=== PATIENT | male | born 1945 | race Caucasian/White ===

== ENCOUNTER 2019-11-10 11:02 | Observation (INO) ==
[2019-11-10 11:27] LABS: Basophils # (auto) 0.03 K/uL (0-0.2); Basophils % (auto) 0.4 %; Eosinophils # (auto) 0.16 K/uL (0-0.5); Eosinophils % (auto) 2.3 %; Hematocrit (blood only) 46.2 % (42-52); Hemoglobin 16.5 g/dL (14.0-18.0); Immature Granulocytes # (auto) 0.04 K/uL (0.00-0.02); Immature Granulocytes % (auto) 0.6 %; Lymphocytes % (auto) 14.3 %; Mean Corpuscular Hemoglobin 32.9 pg (25-34); Mean Corpuscular Hgb Conc 35.7 g/dL (32-36); Mean Corpuscular Volume 92.2 fL (80-100); Mean Platelet Volume 10.6 fL (7.4-10.4); Monocytes # (auto) 0.65 K/uL (0.11-0.59); Monocytes % (auto) 9.3 %; Neutrophils # (auto) 5.13 K/uL (1.4-6.5); Neutrophils % (auto) 73.1 %; Platelet Count 141 K/uL (130-400); RDW Coefficient of Variation 12.6 % (11.5-14.5); RDW Standard Deviation 42.5 fL (36.4-46.3); Red Blood Count 5.01 M/uL (4.7-6.1); White Blood Count 7.01 K/uL (4.8-10.8)
[2019-11-10] MEDS ORDERED: ASPIRIN CHEW 324 MG PO STA (11:28)
[2019-11-10] MEDS ORDERED: NITROGLYCERIN SL 0.4 MG/TAB TAB ONE (11:28)
[2019-11-10] MEDS: NITROGLYCERIN SL 0.4 MG/TAB TAB SL PRN ×2 (11:29→11:35)
[2019-11-10 11:37] LABS: Partial Thromboplastin Time 27.9 Seconds (21.0-31.0); Prothrombin Time 10.4 Seconds (9.0-12.0)
[2019-11-10 11:43] LABS: Alanine Aminotransferase 25 U/L (12-78); Albumin Level 3.8 gm/dl (3.4-5.0); Aspartate Aminotransferase 18 U/L (15-37); BUN Creatinine Ratio 11.2 (10-20); Blood Urea Nitrogen 11 mg/dl (7-18); Calcium 8.8 mg/dl (8.5-10.1); Carbon Dioxide 28 mmol/L (21-32); Chloride 107 mmol/L (98-107); Est GFR (African American) 86.8; Est GFR (Non-African American) 74.9; Glucose 102 mg/dl (70-99); Potassium 4.5 mmol/L (3.5-5.1); Sodium 139 mmol/L (136-145)
[2019-11-10 11:47] LABS: Alkaline Phosphatase 81 U/L (45-117); Bilirubin,Total 0.6 mg/dl (0.2-1); Globulin 3.8 gm/dl (2.5-4.0); Total Protein 7.6 gm/dl (6.4-8.2); Troponin I < 0.015 ng/ml (0-0.045)
--- NOTE | 2019-11-10 11:48 | XRay Report ---
XR chest 1V portable CLINICAL HISTORY: Chest Pain COMPARISON STUDY: Chest radiograph March 12, 2016. Chest CT August 24, 2014. FINDINGS: Lung volumes are normal. Lungs are clear. There is no pneumothorax or pleural effusion. Car diac size is normal. Mediastinal contours are normal. There is no evidence for pulmonary edema. IMPRESSION: No acute cardiopulmonary findings. No change in appearance of the chest. ACT 112: Negative or not required by law. Electronically signed by: Hank Lara M.D. 11/10/2019 11:46 AM
[2019-11-10] MEDS ORDERED: OPTIRAY 320 125ml IV PRN (12:22)
--- NOTE | 2019-11-10 12:42 | CT Scan Report ---
CT ANGIOGRAPHY OF THE CHEST, PULMONARY EMBOLUS PROTOCOL CLINICAL HISTORY: Chest pain. Evaluate for pulmonary embolus. COMPARISON STUDY: Chest CT August 24, 2014. Chest radiograph November 10, 2019. TECHNIQUE: Following IV administration of 120 mL of Optiray-320, helical axial images of the chest we re obtained utilizing the pulmonary embolus protocol. Maximal intensity projections and sagittal and coronal reformats were viewed on an independent 3D workstation. IV contrast was administered withou t complication. Automated exposure control was utilized for the study. A dose lowering technique wa s utilized adhering to the principles of ALARA. CT DOSE: 416.86 mGy.cm FINDINGS: No pulmonary emboli are identified. The heart is mildly enlarged. There is no pericardial effusion. Mildly enlarged bilateral hilar lymph nodes are similar to CT of August 24, 2014 although better assessed on this contrast enhanced exam. There is no pneumothorax or pleural effusion. There is no consolidation to suggest pneumonia. There is mild bronchial wall thickening. A 9 mm perifissura l lingular nodule on image 135 of [address] of August 24, 2014. This is benign give n stability. Bony thorax is unremarkable. Several hepatic cysts are noted. IMPRESSION: 1. No pulmonary emboli identified. 2. No acute findings within the chest. 3. No change in mildly enlarged bilateral hilar lymph nodes since CT of August 24, 2014. These are likely benign given stability. 4. No change in a 9 mm lingular nodule which is benign given stability. 5. Mild cardiomegaly. ACT 112: Negative or not required by law. Electronically signed by: Hank Lara M.D. 11/10/2019 12:40 PM
[2019-11-10] MEDS ORDERED: fentaNYL citrate 100 MCG/2 ML VIAL IV STA (12:45)
[2019-11-10] MEDS ORDERED: ONDANSETRON INJ 2 MG/ML 2 ML VIAL IV STA (12:45)
--- NOTE | 2019-11-10 14:05 | History & Physical Report ---
Date of Service November 10, 2019 Assessment & Plan (1) Acute chest pain: Pt is 74 y/o M with PMH GERD, IBS, prior smoker presented to ER with C/O CP started yesterday while sitting. Described as initially sharp mid sternal CP which then transitioned to heaviness across anterior chest and upper back. Also c/o sensation that he can't take a deep breath as that aggravates pain. This morning had some tingling sensation down left arm and hand. Denies associated nausea, vomiting, diaphoresis. H/O negative stress test in 2017. In ER afebrile, P: 93, R: 20, BP: 163/95, 96% on RA. No leukocytosis. Negative initial troponin CTA chest: No pulmonary emboli identified. No acute findings within the chest. CHEST PAIN R/O ACS. Risk factors: prior tobacco use. DDX: musculoskeletal etiology -In ER given ASA 324mg po, nitro SL x 2 without any relief of CP, fentanyl 50mcg, zofran -Monitor Vitals -Repeat EKG in am -Will trend troponin -Echo -lipid panel in am -continue aspirin 81mg daily -stress echo in am -ibuprofen for pain at this time as likely musculoskeletal -Cardiology consult (2) GERD (gastroesophageal reflux disease): -Continue PPI, continue H2 elaine prn (3) Anxiety: -Continue clonazepam prn DVT Prophylaxis -Heparin SQ Full Code as per discussion with pt Follows with Dr Sanchez for routine care Pt was seen and care coordinated with Dr Ram. See addendum History of Present Illness Chief Complaint: CP Primary Care Provider: Sandip Sanchez, Pt is 74 y/o M with PMH GERD, IBS, prior smoker presented to ER with C/O CP started yesterday. Reports was sitting when developed mid sternal CP that was initially sharp. Later in evening started with CP across anterior chest described as heaviness and across his upper back. Also c/o sensation that he can't take a deep breath as that aggravates pain. This morning had some tingling sensation down left arm and hand. States pain in chest and upper back aggravated with raising his arms. Denies associated nausea, vomiting, diaphoresis. No prior treatment attempted. Reports 1 month ago had URI symptoms which have since resolved except for lingering nonproductive cough. Denies fever/chills. Reports 2 days ago did a jumping enoc challenge with his granddaughter and states did 70 jumping jacks. No CP or SOB during this activity. 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 Denies fever/chills, N/V/C, FERNANDEZ, dizziness, syncope, vision changes, neck pain, hemoptysis, orthopnea, PND, palpitations, cough, sore throat, choking, otalgia, rhinorrhea, abdominal pain, other paresthesias, weakness, extremity weakness, extremity edema, rashes, urinary symptoms. FH unknown as pt was adopted. History cardiac [place] at [facility] [place]: normal coronary arteries reported History stress test 2017: no inducible ischemia, hypertensive response to exercise In ER pt was given 2 SL nitro without any relief of CP. Pt reports has chest heaviness and upper back heaviness with abduction of his arms and with movement of sitting up at this time. No further left arm discomfort or tingling. Allergies Allergy/AdvReac Type Severity Reaction Status Date / Time No Known Allergies Allergy Verified 11/10/19 11:22 Home Medications Home Medications Medication Instructions Recorded Confirmed Type aspirin 81 mg PO QAM 07/29/19 11/10/19 History clonazepam [Klonopin] 2 mg PO HS PRN 07/29/19 11/10/19 History multivitamin 1 tab PO QAM 07/29/19 11/10/19 History omeprazole 20 mg PO DAILY PRN 11/10/19 11/10/19 History ranitidine HCl 300 mg PO HS PRN 11/10/19 11/10/19 History Past Med/Surg History Medical History (Updated 11/10/19 @ 14:20 by Marely Ponce PA-C) Abnormal EKG FOLLOWED BY DR. ROMO "DR. ROMO SAID THERE MUST BE SOMETHING WRONG WITH THE MACHINE". Anxiety GERD (gastroesophageal reflux disease) History of heart block IBS (irritable bowel syndrome) Osteoarthritis Surgical History History of cholecystectomy History of colonoscopy History of esophagogastroduodenoscopy (EGD) History of herniorrhaphy 3 HERNIA REPAIRS History of tooth extraction History of total knee replacement RT/LEFT Family History (Updated 11/10/19 @ 14:20 by Marely Ponce PA-C) Other Family history unknown Social History (Updated 11/10/19 @ 14:21 by Marely Ponce PA-C) Preferred Language: Urdu Communication Ability: Effective Sample Grinder Required: No Beliefs That Will Affect Care: None marital status: Current Living Situation: Spouse Other Information That Helps Us Care for You: No Feels Safe at Home: Yes Safety Concerns: Feels Safe At This Time Smoking Status: Former smoker Tobacco Type: cigarettes ; Do You Dip or Chew Tobacco: No ; Smoking End Date: 1997 ; Second Hand Exposure: No ; Tobacco Cessation Education Requested by Patient: No Hx Alcohol Use: Yes Alcohol type: beer Alcohol Intake Frequency Comment: 3 day Hx Substance Use: No Review of Systems Review of Systems: All systems reviewed & are unremarkable except as noted in HPI & below Physical Exam Physical Exam: General: no distress, WDWN Head: normocephalic, atraumatic Eyes: PERRL, conjunctiva non-injected, anicteric ENT: normal inspection external ears, nose, mucous membranes moist Neck: supple, trachea midline, ROM intact Lungs: clear, no respiratory distress, no wheezing/rhonchi/rales CV: RRR, no murmur, no pretibial edema; +chest wall tenderness with abduction of arms Abd: normal BS, soft, non-tender Ext: no cyanosis, no calf tenderness Neuro: A&O x 3, no focal deficits noted, normal affect Skin: warm, dry Results & Data Vital Signs (Past 12 Hours) Vital Signs Temp Pulse Pulse Resp BP BP Pulse Ox 11/10/19 13:45 70 20 147/100 H 97 11/10/19 12:31 77 22 139/87 98 11/10/19 11:45 85 20 118/76 95 11/10/19 11:31 82 18 135/81 94 11/10/19 11:21 81 20 162/112 H 98 11/10/19 11:15 96 11/10/19 11:05 36.7 C 93 H 20 163/95 H 96 Laboratory Results Short CBC 11/10/19 Range/Units 11:17 WBC 7.01 (4.8-10.8) K/uL Hgb 16.5 (14.0-18.0) g/dL Hct 46.2 (42-52) % Plt Count 141 (130-400) K/uL BMP 11/10/19 11:17 Sodium 139 Potassium 4.5 Chloride 107 Carbon Dioxide 28 BUN 11 Creatinine 1.00 Glucose 102 H Calcium 8.8 Cardiac Enzymes 11/10/19 Range/Units 11:17 Troponin I < 0.015 (0-0.045) ng/ml Liver Function 11/10/19 Range/Units 11:17 Total Bilirubin 0.6 (0.2-1) mg/dl AST 18 (15-37) U/L ALT 25 (12-78) U/L Alkaline Phosphatase 81 (45-117) U/L Albumin 3.8 (3.4-5.0) gm/dl Diagnostic Findings CXR: IMPRESSION: No acute cardiopulmonary findings. No change in appearance of the chest. CTA CHEST: IMPRESSION: 1. No pulmonary emboli identified. 2. No acute findings within the chest. 3. No change in mildly enlarged bilateral hilar lymph nodes since CT of August 24, 2014. These are likely benign given stability. 4. No change in a 9 mm lingular nodule which is benign given stability. 5. Mild cardiomegaly. ECG Additional Comments: EKG 13:01, rate 69, sinus, t wave flattening AVL Code Status & VTE Plan VTE Prophylaxis Plan VTE Prophylaxis will be ordered: Yes Supervising Physician Co-Signing Physician Notes I performed a history and physical examination of the patient on 11/10/2019. I have discussed the patient's management with the advanced practitioner. Please refer to the PA-C's note for the documented findings and plan of care. This is a 74-year-old male who lives at home with his and is being admitted for the evaluation of chest pain. He does not have any history of coronary artery disease and his risk factors only include smoking which he quit several years ago. He does not have hypertension or diabetes or hyperlipidemia. He is adopted and is not aware of his family history. 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 He climbs ladders and denies any chest pain when he does any physical exertion or lifts any heavy weight. He is followed by Dr. Romo of cardiology department at [facility]. He had a cardiac catheterization in 2000 which did not show any obstructive disease. He had stress echocardiography in 2017 without any evidence of ischemia. Since yesterday he developed some chest pain, which initially was sharp and was located in the center of the chest. As time has passed is more across his shoulders and in his back but it does radiate to his left arm. This radiation to the left arm made him concerned and he decided to seek medical care. For some time his left hands felt numb and tingly which has improved now. He is also short of breath with this pain and is unable to take a deep breath as the pain limits that. He does take aspirin a day and took his aspirin this morning. He was given a full dose aspirin in the ER. He was also given 2 doses of sublingual nitroglycerin which did not make any difference to his chest pain. He denies any infectious symptoms currently. He did have some cold symptoms but they have improved now. 2 days ago he did 73 jumping jacks with his granddaughter. He denied any pain anywhere right away after doing that. His physical exam was unremarkable. His pain did increase when he raised his arms up as well as when he was asked to sit up. His EKG, personally reviewed showed T wave flattening in aVL and V2 which appears nonspecific. His first troponin is negative. PE was ruled out with a CT scan. Assessment and plan: His pain is probably musculoskeletal and may have been precipitated after doing 73 jumping jacks with his granddaughter. However it is radiating to his left arm and his left arm felt numb and he is short of breath. Given that, his age and smoking history, will obtain a stress test to be sure. Can trend troponin and repeat EKG if chest pain recurs.
[2019-11-10] MEDS ORDERED: ONDANSETRON INJ 2 MG/ML 2 ML VIAL IV PRN (14:43)
[2019-11-10] MEDS ORDERED: IBUPROFEN 600 MG TAB PO PRN (14:43)
[2019-11-10] MEDS ORDERED: clonazePAM 1 MG TAB PO PRN (14:43)
[2019-11-10] MEDS ORDERED: FAMOTIDINE 20 MG TAB PO PRN (14:43)
[2019-11-10] MEDS ORDERED: ACETAMINOPHEN 325 MG TAB PO PRN (14:43)
[2019-11-10] MEDS ORDERED: ALUMINUM/MAGNESIUM SUSP 30 ML UDC PO PRN (14:43)
--- NOTE | 2019-11-10 15:05 | Electrocardiogram Report ---
Test Reason : Blood Pressure : / mmHG Vent. Rate : 082 BPM Atrial Rate : 082 BPM P-R Int : 202 ms QRS Dur : 088 ms QT Int : 346 ms P-R-T Axes : 060 051 051 degrees QTc Int : 404 ms Normal sinus rhythm Normal ECG When compared with ECG of 12-MAR-2016 13:01, No significant change was found Confirmed by Amado العلي ([id number]) on 11/10/2019 3:05:26 PM Referred By: ER Confirmed By:Amado العلي
--- NOTE | 2019-11-10 15:12 | Electrocardiogram Report ---
Test Reason : Blood Pressure : / mmHG Vent. Rate : 069 BPM Atrial Rate : 069 BPM P-R Int : 224 ms QRS Dur : 086 ms QT Int : 368 ms P-R-T Axes : 065 061 058 degrees QTc Int : 394 ms Sinus rhythm with 1st degree A-V block Otherwise normal ECG When compared with ECG of 10-NOV-2019 11:10, (unconfirmed) No significant change was found Confirmed by Amado العلي ([id number]) on 11/10/2019 3:11:48 PM Referred By: REFERRED SELF Confirmed By:Amado العلي
[2019-11-10] MEDS: HEPARIN SOD 5,000 UNIT/0.5 ML VIAL SQ SCH ×2 (16:37→21:04)
--- NOTE | 2019-11-10 17:14 | Emergency Department Note ---
Entered by Diane Perez acting as a scribe for Marbin Cobos MD History of Present Illness General Chief complaint: Shortness of Breath/Dyspnea Stated complaint: SOB Time Seen by Provider: 11/10/19 11:22 Source: patient History of Present Illness Onset (ago): day(s) (yesterday morning) Location: chest Radiation: back and extremity (left arm) Pain Consistency: + constant Maximum Pain Intensity: 10 Quality: + other (tightness) Exacerbated By: + other (breathing) Associated symptoms: + denies other symptoms (cold symptoms, leg swelling, leg pain), + shortness of breath and + other (tingling in hand); no fever/chills (f ever) The patient is a 74 year old male who presents to the Emergency Room with complaints of constant chest pain starting yesterday morning. The patient states that yesterday morning he started having a tightness in the center of his chest. He states that it radiated to his back above his shoulder blades and then went over to his left arm. He states that it has not gone away, but he started to become concerned when he was sitting in his recliner this morning with his arm draped over the side and his fingers and hand went tingly. He notes that the pain has also become worse with breathing and that is making him short of breath. He reports that he feels like he cannot felt a full breath in. The patient notes that he does have a history of two heart blockages from 24 years ago. The patient denies fever, cold symptoms, leg swelling, leg pain, taking anything for the pain, recent use of Viagra, a history of smoking, a history of hypertension, and a history of DVT. Home Medications Home Medications Medication Instructions Recorded Confirmed Type aspirin 81 mg PO QAM 07/29/19 11/10/19 History clonazepam [Klonopin] 2 mg PO HS PRN 07/29/19 11/10/19 History multivitamin 1 tab PO QAM 07/29/19 11/10/19 History omeprazole 20 mg PO DAILY PRN 11/10/19 11/10/19 History ranitidine HCl 300 mg PO HS PRN 11/10/19 11/10/19 History Allergies Allergy/AdvReac Type Severity Reaction Status Date / Time No Known Allergies Allergy Verified 11/10/19 11:22 Past Med/Surg History Medical History Abnormal EKG FOLLOWED BY DR. JOEL "DR. JOEL SAID THERE MUST BE SOMETHING WRONG WITH THE MACHINE". 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 and A total of 10 systems reviewed and were otherwise negative Physical Exam Vital Signs Vital Signs - 24 hr 11/10/19 11:05 11/10/19 11:15 11/10/19 11:21 Temperature 36.7 C Temperature Source Oral Pulse Rate 93 H Pulse Rate [Right Finger] 81 Respiratory Rate 20 20 Respiratory Effort / Characteristics Non-Labored Spontaneous Spontaneous Labored Respiratory Depth Normal Blood Pressure 163/95 H Blood Pressure [Left Arm] 162/112 H Blood Pressure Mean 117 Blood Pressure Mean [Left Arm] 128 Blood Pressure Position Sitting Blood Pressure Position [Left Arm] Sitting Pulse Oximetry 96 96 98 Oxygen Delivery Method Room Air Room Air Sepsis Recent Fever Within 48 Hours No Sepsis Action Taken by Nursing No Action Required 11/10/19 11:31 11/10/19 11:45 11/10/19 12:31 Temperature Temperature Source Pulse Rate Pulse Rate [Right Finger] 82 85 77 Respiratory Rate 18 20 22 Respiratory Effort / Characteristics Respiratory Depth Blood Pressure Blood Pressure [Left Arm] 135/81 118/76 139/87 Blood Pressure Mean Blood Pressure Mean [Left Arm] 99 90 104 Blood Pressure Position Blood Pressure Position [Left Arm] Pulse Oximetry 94 95 98 Oxygen Delivery Method Sepsis Recent Fever Within 48 Hours Sepsis Action Taken by Nursing Constitutional: Vital signs reviewed. Eyes: Pupils are equal round reactive to light. Conjunctiva are noninjected. ENT: Pharynx is clear without erythema or exudate. Mucous membranes are moist. Neck supple without meningeal signs. Respiratory: Clear to auscultation bilaterally. Breath sounds are equal bilaterally. Cardiovascular: Regular rate and rhythm. No rubs or gallops. GI: Soft, nondistended and nontender. Bowel sounds are present. Musculoskeletal: No peripheral edema. No lower extremity tenderness. Integumentary: No cyanosis. Neurological: The patient is awake and alert. No focal deficits. Psychiatric: Normal affect. Course Course 1124: The patient was evaluated in room A3. A complete history and physical exam was performed. 1157: I reevaluated the patient and he said that his chest pain went down after the first Nitroglycerin, but came right back up. 1304: I reevaluated the patient and he is just now getting Fentanyl. He is still having chest discomfort. I discussed the patient's test results and treatment plan with him. He verbally agrees and understands. 1315: I discussed the patient's case with Dr. Isauro Li Hospitalist. He will evaluate the patient for further management. Administered Medications Heparin Sodium (Porcine) (Heparin Sodium (Porcine)) 5,000 units SQ Q8 [facility] Stop: 12/10/19 14:42 Last Admin: 11/10/19 16:37 Dose: 5,000 units Documented by: [id number] Cosigned by: [id number] Discontinued Medications Aspirin (Aspirin) 324 mg PO NOW STA Stop: 11/10/19 11:29 Last Admin: 11/10/19 11:40 Dose: 324 mg Documented by: [id number] Fentanyl Citrate (Fentanyl Citrate) 50 mcg IV NOW STA Stop: 11/10/19 12:46 Last Admin: 11/10/19 13:06 Dose: 50 mcg Documented by: [id number] Ioversol (Optiray 320 125ml) 120 ml IV ONCE PRN PRN Reason: Interaction Checking Stop: 11/14/19 12:21 Last Admin: 11/10/19 12:22 Dose: 120 ml Documented by: [id number] Nitroglycerin (Nitrostat) Confirm Administered Dose 0.4 mg .ROUTE .STK-MED ONE Stop: 11/10/19 11:29 Last Admin: 11/10/19 11:30 Dose: Not Given Documented by: [id number] Nitroglycerin (Nitrostat) 0.4 mg SL UD PRN PRN Reason: Chest Pain Stop: 12/10/19 11:27 Last Admin: 11/10/19 11:35 Dose: 0.4 mg Documented by: [id number] Admin: 11/10/19 11:29 Dose: 0.4 mg Documented by: [id number] Ondansetron HCl (Zofran) 4 mg IV NOW STA Stop: 11/10/19 12:46 Last Admin: 11/10/19 13:06 Dose: 4 mg Documented by: [id number] Medical Decision Making Differential Diagnosis Differential diagnoses include unstable angina, [place], PE, aortic dissection, pleursiy, GERD. Medical Records Attestation: I reviewed the patient's medical records. I did perform a limited focused review of portions of the patient's old chart on the electronic medical record. The patient has had no recent pertinent visits to this hospital. Home Medications Current Medication List: was personally reviewed by me Laboratory Data Attestation: I reviewed the patient's lab results. Result diagrams: 11/10/19 11:17 11/10/19 11:17 Lab Results 11/10/19 11/10/19 11/10/19 Range/Units 11:17 11:17 11:17 WBC 7.01 (4.8-10.8) K/uL RBC 5.01 (4.7-6.1) M/uL Hgb 16.5 (14.0-18.0) g/dL Hct 46.2 (42-52) % MCV 92.2 (80-100) fL MCH 32.9 (25-34) pg MCHC 35.7 (32-36) g/dL RDW Std Deviation 42.5 (36.4-46.3) fL RDW Coeff of Eufemia 12.6 (11.5-14.5) % Plt Count 141 (130-400) K/uL MPV 10.6 H (7.4-10.4) fL Immature Gran % (Auto) 0.6 % Neut % (Auto) 73.1 % Lymph % (Auto) 14.3 % Fleming % (Auto) 9.3 % Eos % (Auto) 2.3 % Baso % (Auto) 0.4 % Immature Gran # (Auto) 0.04 H (0.00-0.02) K/uL Neut # (Auto) 5.13 (1.4-6.5) K/uL Lymph # (Auto) 1.00 L (1.2-3.4) K/uL Fleming # (Auto) 0.65 H (0.11-0.59) K/uL Eos # (Auto) 0.16 (0-0.5) K/uL Baso # (Auto) 0.03 (0-0.2) K/uL PT 10.4 (9.0-12.0) Seconds INR 1.0 (0.9-1.1) APTT 27.9 (21.0-31.0) Seconds PTT Ratio 1.0 Sodium 139 (136-145) mmol/L Potassium 4.5 (3.5-5.1) mmol/L Chloride 107 (98-107) mmol/L Carbon Dioxide 28 (21-32) mmol/L Anion Gap 4.0 (3-11) BUN 11 (7-18) mg/dl Creatinine 1.00 (0.6-1.4) mg/dl Est Cr Clr Drug Dosing 71.0 ml/min Est GFR ( Amer) 86.8 Est GFR (Non-Af Amer) 74.9 BUN/Creatinine Ratio 11.2 (10-20) Glucose 102 H (70-99) mg/dl Calcium 8.8 (8.5-10.1) mg/dl Total Bilirubin 0.6 (0.2-1) mg/dl AST 18 (15-37) U/L ALT 25 (12-78) U/L Alkaline Phosphatase 81 (45-117) U/L Troponin I < 0.015 (0-0.045) ng/ml Total Protein 7.6 (6.4-8.2) gm/dl Albumin 3.8 (3.4-5.0) gm/dl Globulin 3.8 (2.5-4.0) gm/dl Albumin/Globulin Ratio 1.0 (0.9-2) Imaging Data Radiologist's Impression: Radiology results as stated below per my review and the radiologist's interpretation: XR chest 1V portable CLINICAL HISTORY: Chest Pain COMPARISON STUDY: Chest radiograph March 12, 2016. Chest CT August 24, 2014. FINDINGS: Lung volumes are normal. Lungs are clear. There is no pneumothorax or pleural effusion. Cardiac size is normal. Mediastinal contours are normal. There is no evidence for pulmonary edema. IMPRESSION: No acute cardiopulmonary findings. No change in appearance of the chest. ACT 112: Negative or not required by law. Electronically signed by: Hank Lara M.D. 11/10/2019 11:[address] ANGIOGRAPHY OF THE CHEST, PULMONARY EMBOLUS PROTOCOL CLINICAL HISTORY: Chest pain. Evaluate for pulmonary embolus. COMPARISON STUDY: Chest CT August 24, 2014. Chest radiograph November 10, 2019. TECHNIQUE: Following IV administration of 120 mL of Optiray-320, helical axial images of the chest were obtained utilizing the pulmonary embolus protocol. Maximal intensity projections and sagittal and coronal reformats were viewed on an independent 3D workstation. IV contrast was administered without complication. Automated exposure control was utilized for the study. A dose l owering technique was utilized adhering to the principles of ALARA. CT DOSE: 416.86 mGy.cm FINDINGS: No pulmonary emboli are identified. The heart is mildly enlarged. There is no pericardial effusion. Mildly enlarged bilateral hilar lymph nodes are similar to CT of August 24, 2014 although better assessed on this contrast enhanced exam. There is no pneumothorax or pleural effusion. There is no consolidation to suggest pneumonia. There is mild bronchial wall thickening. A 9 mm perifissural lingular nodule on image 135 of [address] of August 24, 2014. This is benign given stability. Bony thorax is unremarkable. Several hepatic cysts are noted. IMPRESSION: 1. No pulmonary emboli identified. 2. No acute findings within the chest. 3. No change in mildly enlarged bilateral hilar lymph nodes since CT of August 24, 2014. These are likely benign given stability. 4. No change in a 9 mm lingular nodule which is benign given stability. 5. Mild cardiomegaly. ACT 112: Negative or not required by law. Electronically signed by: Hank Lara M.D. 11/10/2019 12:40 PM ECG Data Attestation: I personally reviewed and interpreted this ECG as follows: Indication: + chest pain and + SOB/dyspnea Rate (beats per minute): 82 Rhythm: + normal sinus ECG ST segments: + ST depression (slight depressions laterally) and + T-wave inversions (septally); no ST elevation ECG Findings: no PVCs Additional Comments: REPEAT EKG: Sinus rhythm at a rate of 69. 1st degree AV block. No ST depressions or elevations. No PVCs. Blood Pressure Blood Pressure Findings: Elevated blood pressure Blood Pressure Disposition: Referred to patients primary care provider [place] Narrative I did evaluate the patient as noted above. The patient is presenting with chest pain rating to his back as well as dyspnea on exertion. 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 IV access was established. The patient was placed on a continuous cardiac cath lab manager. I did treat the patient with sublingual nitroglycerin. Initially he had improvement of his chest pain after the first nitroglycerin but then it came back and a second 1 did not seem to improve his chest pain. I did order and personally review the patient's 12-lead EKG as described above. He has no evidence of ST elevation but he has some nonspecific slight half millimeter depressions in the lateral leads and some T wave septally. I did order and personally reviewed the images of the patient's chest x-ray as described above. There is no evidence of acute abnormality. I did order and review the patient's blood work as noted in the electronic medical record. CBC is unremarkable without leukocytosis or anemia. Electrolytes are unremarkable. Troponin is negative. I did repeat another twelve-lead EKG as patient was still having chest pain. Twelve-lead EKG shows no ST changes. I did order a CT of the chest. I did review the images myself as well as the radiology report as described above. There is no evidence of PE. He does have stable hilar lymphadenopathy with a lingular nodule which is not significantly changed from 2014. I did discuss the test results with the patient including incidental results. I did recommend hospitalization for further care and evaluation and repeat cardiac biomarkers. I did treat him with Zofran and fentanyl IV. He is also given aspirin p.o. I did discuss the case with the hospitalist and senior case manager. Impression & Plan Acute chest pain, TOMAS (dyspnea on exertion), Abnormal EKG Discharge Plan Visit Data *Final* Discharge Date/Time: 11/10/19 14:30 Chief Complaint: Shortness of Breath/Dyspnea Stated Complaint: SOB ED Provider: Marbin Cobos Discharge Problem: Acute chest pain, TOMAS (dyspnea on exertion), Abnormal EKG Patient Disposition: Admitted As Inpatient Discharge Instructions Interventions: ED Discharge Assessment Last Done: 11/10/19 14:30 The scribe's documentation has been prepared under my direction and personally reviewed by me in its entirety. I confirm that the note above accurately reflects all work, treatment, procedures, and medical decision making performed by me.
[2019-11-11] MEDS: HEPARIN SOD 5,000 UNIT/0.5 ML VIAL SQ SCH (05:58)
[2019-11-11 07:52] LABS: Chol HDL Ratio 3; Cholesterol 161 mg/dl (0-200); HDL Cholesterol 61 mg/dl; LDL Cholesterol Calculated 78 mg/dl; Triglycerides 111 mg/dl (0-150); VLDL Cholesterol 22 mg/dl
[2019-11-11] MEDS ORDERED: MULTIVITAMIN TAB PO SCH (09:00)
[2019-11-11] MEDS ORDERED: PANTOprazole 40 MG TAB PO SCH (09:00)
[2019-11-11] MEDS ORDERED: ASPIRIN 81 MG ECTAB PO SCH (09:00)
--- NOTE | 2019-11-11 09:24 | Hospitalist Progress Note ---
Date of Service November 11, 2019 Assessment & Plan (1) Acute chest pain: To undergo stress test today - if negative okay to discharge resting echo reviewed EKG WNL Troponins negative x 3 Lipid panel LDL 78, Total chol 161, HDL 61, Trig 111 continue ASA ibuprofen prn pain cardiology on board (2) GERD (gastroesophageal reflux disease): Continue PPI, continue H2 elaine prn (3) Anxiety: Continue clonazepam prn DVT Prophylaxis -Heparin SQ Full Code as per discussion with pt Follows with Dr Sanchez for routine care Pt was seen and care coordinated with Dr Fitzpatrick. See addendum Admission and Anticipated Discharge Date Admission Date: November 10, 2019 Anticipated date of discharge: 11/11/19 Supervising Physician Co-Signing Physician Notes Pt was seen and examined. Agreed with Rosina HERNANDES exam, assessment and Plan. 74 y/o M with PMH GERD, IBS, prior smoker presented to ER with chest pain. Pt describes the chest pain as sharp and located in the mid sternal area. He said that he was doing jumping jacks with his grand daughter few days ago. Troponin x 3 negative. EKG showed no acute ischemic changes. Resting echo showed normal left ventricle wall thickness. left ventricle wall motion is normal with ejection fraction 55 to 60%. He had a stress test done today that was negative for ischemia. Continue ASA 81 mg. Advised pt if chest pain persist or worsening to come back to the ER for further eval. MD Amari Subjective Patient seen and examined in room 276-1. Follow up Chest Pain. Currently sitting up in bed. Complains of upper back pain in scapular region 2/10 but no otilia chest pain. Denies f/c/s, chest pain, sob, n/v/d, abdominal pain. Currently NPO for stress test today. States he did jumping jacks with his granddaughter a few days ago, 70 specifically. 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 No prior hx of CAD or [place]. Pain is worse with arm movement and contraction of back muscles and taking deep breath. He feels much better then when he was admitted yesterday. Review of Systems Review of Systems: All systems reviewed & are unremarkable except as noted in HPI & below Physical Exam Physical Exam: Gen: WD/WN, M, NAD, A&O x3 HEENT: Normocephalic, atraumatic, conjunctivae moist, sclerae anicteric, mucous membranes moist. Lung: Clear to Auscultation bilaterally, no wheezes/rales/rhonchi Heart: Regular rate, regular rhythm, no murmurs, rubs, or gallops Chest/Back: +pain to palpation to paraspinal muscular along cervical and upper thoracic region. Pain with back and arm extension. No pain to palpation anterior chest wall. Pain exacerbated with deep breathing Abdomen: Soft, NT, ND +BS x 4 Extremities: No edema Skin: Warm, no rash, negative turgor. Results & Data ([facility]) Vital Signs (Past 12 Hours) Vital Signs Temp Pulse Pulse Resp BP Pulse Ox 11/11/19 08:00 73 11/11/19 07:21 36.4 C L 64 16 106/65 97 11/11/19 03:48 36.4 C L 65 17 107/66 97 11/10/19 23:08 36.6 C 64 18 122/70 96 11/10/19 22:19 58 L Laboratory Results Short CBC 11/10/19 Range/Units 11:17 WBC 7.01 (4.8-10.8) K/uL Hgb 16.5 (14.0-18.0) g/dL Hct 46.2 (42-52) % Plt Count 141 (130-400) K/uL BMP 11/10/19 11:17 Sodium 139 Potassium 4.5 Chloride 107 Carbon Dioxide 28 BUN 11 Creatinine 1.00 Glucose 102 H Calcium 8.8 Cardiac Enzymes 11/10/19 11/10/19 11/10/19 Range/Units 11:17 16:59 22:47 Troponin I < 0.015 < 0.015 < 0.015 (0-0.045) ng/ml Liver Function 11/10/19 Range/Units 11:17 Total Bilirubin 0.6 (0.2-1) mg/dl AST 18 (15-37) U/L ALT 25 (12-78) U/L Alkaline Phosphatase 81 (45-117) U/L Albumin 3.8 (3.4-5.0) gm/dl Diagnostic Findings Echocardiogram: LVEF 55 6%, low ventricular wall motion is normal, no significant valvular disease. Medications Administered Aspirin (Ecotrin Ectab) 81 mg PO [facility] Stop: 12/11/19 08:59 Last Admin: 11/11/19 07:55 Dose: 81 mg Documented by: [id number] Clonazepam (Klonopin) 2 mg PO HS PRN PRN Reason: Anxiety/Insomnia Stop: 12/10/19 14:42 Last Admin: 11/10/19 21:09 Dose: 2 mg Documented by: [id number] Heparin Sodium (Porcine) (Heparin Sodium (Porcine)) 5,000 units SQ Q8 [facility] Stop: 12/10/19 14:42 Last Admin: 11/11/19 05:58 Dose: 5,000 units Documented by: [id number] Cosigned by: [id number] Admin: 11/10/19 21:04 Dose: 5,000 units Documented by: [id number] Cosigned by: [id number] Admin: 11/10/19 16:37 Dose: 5,000 units Documented by: [id number] Cosigned by: [id number] Multivitamins (Multivitamin Tab) 1 tab PO QAM [facility] Stop: 12/11/19 08:59 Last Admin: 11/11/19 07:55 Dose: 1 tab Documented by: [id number] Discontinued Medications Aspirin (Aspirin) 324 mg PO NOW STA Stop: 11/10/19 11:29 Last Admin: 11/10/19 11:40 Dose: 324 mg Documented by: [id number] Fentanyl Citrate (Fentanyl Citrate) 50 mcg IV NOW STA Stop: 11/10/19 12:46 Last Admin: 11/10/19 13:06 Dose: 50 mcg Documented by: [id number] Ioversol (Optiray 320 125ml) 120 ml IV ONCE PRN PRN Reason: Interaction Checking Stop: 11/14/19 12:21 Last Admin: 11/10/19 12:22 Dose: 120 ml Documented by: [id number] Nitroglycerin (Nitrostat) Confirm Administered Dose 0.4 mg .ROUTE .STK-MED ONE Stop: 11/10/19 11:29 Last Admin: 11/10/19 11:30 Dose: Not Given Documented by: [id number] Nitroglycerin (Nitrostat) 0.4 mg SL UD PRN PRN Reason: Chest Pain Stop: 12/10/19 11:27 Last Admin: 11/10/19 11:35 Dose: 0.4 mg Documented by: [id number] Admin: 11/10/19 11:29 Dose: 0.4 mg Documented by: [id number] Ondansetron HCl (Zofran) 4 mg IV NOW STA Stop: 11/10/19 12:46 Last Admin: 11/10/19 13:06 Dose: 4 mg Documented by: [id number] ECG Rate (beats per minute): 64 Rhythm: normal sinus Findings: + 1st degree AV block
--- NOTE | 2019-11-11 10:20 | Post Operative Brief Note ---
Cardiology Brief Post Op Date of Surgery November 11, 2019 Pre & Post Diagnosis Preprocedure diagnosis: Chest pain/shortness of breath Postprocedure diagnosis: Normal exercise stress echocardiogram Procedure Exercise stress echocardiogram: Patient exercised for 6 minutes according to a standard [place] protocol, with appropriate heart rate and blood pressure response having achieved and exceeded the target heart rate. The baseline EKG was normal, with normal stress EKG response. The resting left ventricular wall motion is normal with an appropriate increase in the overall left ventricular systolic function and no new regional wall motion abnormalities noted on the post exercise images. Impression: Nonischemic response to stress echocardiogram. Mathematical Engineering Technician Mitul Light DO Transport Pilot Kyleigh Viera, RCS Estimated Blood Loss 0 Findings Consistent with Post-Op Diagnosis Anesthesia Type General Complications none Disposition Disposition: PCU
--- NOTE | 2019-11-11 10:59 | Discharge Summary ---
Date of Service November 11, 2019 Admission HPI Per Admitting Provider Pt is 74 y/o M with PMH GERD, IBS, prior smoker presented to ER with C/O CP started yesterday. Reports was sitting when developed mid sternal CP that was initially sharp. Later in evening started with CP across anterior chest described as heaviness and across his upper back. Also c/o sensation that he can't take a deep breath as that aggravates pain. This morning had some tingling sensation down left arm and hand. States pain in chest and upper back aggravated with raising his arms. Denies associated nausea, vomiting, diaphoresis. No prior treatment attempted. Reports 1 month ago had URI symptoms which have since resolved except for lingering nonproductive cough. Denies fever/chills. Reports 2 days ago did a jumping enoc challenge with his granddaughter and states did 70 jumping jacks. No CP or SOB during this activity. 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 Denies fever/chills, N/V/C, FERNANDEZ, dizziness, syncope, vision changes, neck pain, hemoptys is, orthopnea, PND, palpitations, cough, sore throat, choking, otalgia, rhinorrhea, abdominal pain, other paresthesias, weakness, extremity weakness, extremity edema, rashes, urinary symptoms. FH unknown as pt was adopted. History cardiac cath 2001 at [facility]: normal coronary arteries reported History stress test 2017: no inducible ischemia, hypertensive response to exercise In ER pt was given 2 SL nitro without any relief of CP. Pt reports has chest heaviness and upper back heaviness with abduction of his arms and with movement of sitting up at this time. No further left arm discomfort or tingling. Admission Exam Per Admitting Provider General: no distress, WDWN Head: normocephalic, atraumatic Eyes: PERRL, conjunctiva non-injected, anicteric ENT: normal inspection external ears, nose, mucous membranes moist Neck: supple, trachea midline, ROM intact Lungs: clear, no respiratory distress, no wheezing/rhonchi/rales CV: RRR, no murmur, no pretibial edema; +chest wall tenderness with abduction of arms Abd: normal BS, soft, non-tender Ext: no cyanosis, no calf tenderness Neuro: A&O x 3, no focal deficits noted, normal affect Skin: warm, dry Principal Diagnosis Musculoskeletal chest pain Muscle strain Discharge Exam Gen: WD/WN, M, NAD, A&O x3 HEENT: Normocephalic, atraumatic, conjunctivae moist, sclerae anicteric, mucous membranes moist. Lung: Clear to Auscultation bilaterally, no wheezes/rales/rhonchi Heart: Regular rate, regular rhythm, no murmurs, rubs, or gallops Chest/Back: +pain to palpation to paraspinal muscular along cervical and upper thoracic region. Pain with back and arm extension. No pain to palpation anterior chest wall. Pain exacerbated with deep breathing Abdomen: Soft, NT, ND +BS x 4 Extremities: No edema Skin: Warm, no rash, negative turgor. Discharge Data Allergies Allergy/AdvReac Type Severity Reaction Status Date / Time No Known Allergies Allergy Verified 11/10/19 11:22 Ordered Studies Diagnostic Findings CXR: IMPRESSION: No acute cardiopulmonary findings. No change in appearance of the chest. CTA CHEST: IMPRESSION: 1. No pulmonary emboli identified. 2. No acute findings within the chest. 3. No change in mildly enlarged bilateral hilar lymph nodes since CT of August 24, 2014. These are likely benign given stability. 4. No change in a 9 mm lingular nodule which is benign given stability. 5. Mild cardiomegaly. ECG Additional Comments: EKG 13:01, rate 69, sinus, t wave flattening AVL Exercise Stress Test 11/11/2019 Nonischemic response to stress echocardiogram, resting left ventricular wall motion is normal with appropriate increase in the overall left ventricular systolic function and no new regional wall motion abnormalities noted on post exercise images. Baseline EKG was normal and normal stress EKG response. Hospital Course (1) Acute chest pain: Pt is 74 y/o M with PMH GERD, IBS, prior smoker presented to ER with C/O CP started yesterday while sitting. Described as initially sharp mid sternal CP which then transitioned to heaviness across anterior chest and upper back. Also c/o sensation that he can't take a deep breath as that aggravates pain. On morning of admission had some tingling sensation down left arm and hand. Denies associated nausea, vomiting, diaphoresis. H/O negative stress test in 2017. Patient was admitted to telemetry floor. Serial troponins remained WNL. Repeat EKG WNL. He underwent exercise stress echocardiogram on day of discharge which is negative for inducible ischemia. Fasting lipid panel Lipid panel LDL 78, Total chol 161, HDL 61, Trig 111. Symptoms likely secondary to musculoskeletal etiology and or muscle strain. Patient is medically stable for discharge. Recommend continue current medication regimen, including daily asa 81mg. Recommend treating with rest, ibuprofen 40 mg every 6 hours as needed and warm moist heat. He is scheduled for follow-up with PCP on 11/17/2019. (2) GERD (gastroesophageal reflux disease): (3) Anxiety: Total Time Total Time Spent Total Time Spent (In Minutes): 45 Discharge Plan Discharge Items Patient Disposition: Home - Self-Care Reason For Visit: Chest pain Discharge Diagnosis: Musculoskeletal chest pain Muscle Strain Condition on Discharge: Good Activity: Resume your previous activity Lifting: Gradually increase as tolerated Bathing: No limitations Weightbearing: Full weightbearing Non-emergency contact: Primary Care Provider Call non-emergency contact if: you have any medication questions, your symptoms worsen, your pain is not controlled and your temperature is above 101 Follow-up/Referrals: Sandip Sanchez DO [Primary Care Provider] - 11/17/19 11:05 am Diet: Regular Addtl Attending Provider Instructions: MEDICATION CHANGES: No new medications were started during your hospital stay. Take all medications as prescribed. Recommend taking ibuprofen 400mg every 6 hours as needed for your back pain. SUMMARY OF TEST RESULTS: You were admitted for chest pain. You underwent repeat lab test and exercise stress test to rule a cardiac source of your chest pain. It is felt that your chest and back pain is likely due to muscle strain. We recommend taking ibuprofen 400mg every 6 hours as needed for pain. You can also try a heating pad to the area on 20minutes and off 20 minutes. Return to activity as tolerated. PENDING TEST RESULTS: None RECOMMENDATIONS FOR FOLLOW-UP: Follow up with your primary care provider as scheduled on 11/17/2019 at 11:05 a.m. OTHER INSTRUCTIONS: Seek medical attention if you have: * temperature above 101 * chest pain or trouble breathing * abdominal pain, nausea, vomiting * diarrhea, dark stools or bloody stools * any unanswered questions or concerns Call 911 if symptoms are severe. Please take good care of yourself. Call if you have any questions or problems. You can reach a [facility] hospitalist on duty at [facility] 24 hours a day by calling [phone]. My pager number # is [phone]. Pending Studies at Discharge: No Stand-Alone Forms: My [facility] Health, Smoking Cessation Medications and DC Order Prescriptions: Continued multivitamin Tablet 1 tab PO QAM RF: 0 aspirin 81 mg Tablet,Delayed Release (Dr/Ec) 81 mg PO QAM RF: 0 clonazepam [Klonopin] 2 mg Tablet 2 mg PO HS PRN (Reason: Insomnia) RF: 0 ranitidine HCl 300 mg tablet 300 mg PO HS PRN (Reason: Acid Reflux) RF: 0 omeprazole 20 mg capsule,delayed release(DR/EC) 20 mg PO DAILY PRN (Reason: Acid Reflux) RF: 0 Discharge Orders: Discharge Order (Routine); Ordered 11/11/19 Ordered By: Rosina Medina Admission Data Admit Date/Time: 11/10/19 13:42 Attending Provider: Guillermo Fitzpatrick Admit Provider: Kendell Ram Primary Care Provider: Sandip Sanchez Other Providers: Kendell Ram Other Interventions: Discharge Summary Assessment (RN) Last Done: 11/11/19 11:06 DC Date/Time DO NOT enter until pt leaves facility: 11/11/19 11:48
--- NOTE | 2019-11-11 11:51 | Electrocardiogram Report ---
Test Reason : Blood Pressure : / mmHG Vent. Rate : 064 BPM Atrial Rate : 064 BPM P-R Int : 240 ms QRS Dur : 090 ms QT Int : 380 ms P-R-T Axes : 067 062 056 degrees QTc Int : 392 ms Sinus rhythm with 1st degree A-V block Otherwise normal ECG When compared with ECG of 10-NOV-2019 13:01, No significant change was found Confirmed by Amado العلي ([id number]) on 11/11/2019 11:50:59 AM Referred By: REFERRED SELF Confirmed By:Amado العلي
== END 2019-11-11 11:48 | disposition home or self-care (01) ==
LOC: ED 11:02 → 2N 11:02 → SUATTDRO 13:42 → 2N 14:30

== ENCOUNTER 2023-02-18 19:56 | Inpatient (IN) ==
[2023-02-18 20:37] LABS: Basophils # (auto) 0.08 K/uL (0-0.2); Eosinophils # (auto) 0.08 K/uL (0-0.50); Hematocrit (blood only) 39.6 % (42.0-52.0); Hemoglobin 14.1 g/dl (14.0-18.0); Immature Granulocytes # (auto) 0.04 K/uL (0.01-0.20); Immature Granulocytes % (auto) 0.5 %; Mean Corpuscular Hemoglobin 32.4 pg (25.0-34.0); Mean Corpuscular Hgb Conc 35.6 g/dL (32.0-36.0); Monocytes # (auto) 0.54 K/uL (0.11-0.59); Monocytes % (auto) 6.8 %; Neutrophils # (auto) 5.27 K/uL (1.40-6.50); Neutrophils % (auto) 66.7 %; Platelet Count 187 K/uL (130-400); RDW Coefficient of Variation 12.6 % (11.5-14.5); RDW Standard Deviation 41.5 fL (36.4-46.3); Red Blood Count 4.35 M/uL (4.70-6.10); White Blood Count 7.91 K/ul (4.8-10.8)
[2023-02-18 20:58] LABS: Albumin Globulin Ratio 1.5 (0.9-2); BUN Creatinine Ratio 38.6 (10-20); Bilirubin,Total 0.8 mg/dl (0.2-1.0); Calcium 8.6 mg/dl (8.6-10.3); Creatinine Clr Calc Pharmacy 66.4 ml/min; Est GFR (African American) 83.4 ml/min; Est GFR (Non-African American) 71.9 ml/min; Globulin 2.6 gm/dl (2.5-4.0); Potassium 4.6 mmol/L (3.5-5.1); Total Protein 6.6 gm/dl (6.0-8.3)
[2023-02-18] MEDS ORDERED: SODIUM CHLORIDE 0.9% 1000ML 1,000 ML IV ONE (21:00)
[2023-02-18] MEDS ORDERED: PANTOprazole 40 MG in SYRINGE 0 ML IV ONE (21:00)
[2023-02-18 21:04] LABS: Troponin I High Sensitivity 7.9 pg/ml (0-20)
--- NOTE | 2023-02-18 21:04 | Emergency Department Note ---
Impression & Plan Acute upper gastrointestinal bleeding, Melena ED Provider Note HISTORY OF PRESENT ILLNESS: Patient is a 78-year-old male with presenting with epigastric abdominal pain and melanotic stool. Patient reports that 4 days ago he developed a burning sensation in his epigastrium. Symptoms have been present for the last 4 days. Reports that 2 days ago he started having black tarry stools. He is on an aspirin daily. Denies any history of esophageal varices. He does not remember the last time he had an EGD or colonoscopy. Reports some epigastric pain at this time. Denies any shortness of breath. He reports feeling dizzy when he stands up in the last 48 hours. ROS: as above PHYSICAL EXAM: Constitutional: Patient appears in no acute distress. HENT: Head: Normocephalic and atraumatic. Eyes: EOMI, PERRL Mouth/Throat: Mucous membranes moist. Neck: Trachea midline. Neck supple. Cardiovascular: Tachycardic with regular rhythm. No murmurs, rubs or gallops. Intact distal pulses. Pulmonary/Chest: No respiratory distress. Breath sounds clear and equal bilaterally. No wheezes or rales Abdominal: BS +. Abdomen soft, no tenderness, rebound or guarding. Musculoskeletal: No edema, tenderness or deformity noted. Skin: Warm and dry. No rash, erythema, pallor or cyanosis Psychiatric: Appropriate mood and affect for situation. Neurological: Alert and keenly responsive. CN II-XII grossly intact, moving all extremities equally and fully. MDM: - Vitals signs showed tachycardia - History obtained via patient. Patient presents with epigastric abdominal pain and melanotic stool. Patient reports he developed a burning sensation in his epigastrium 4 days ago. 2 days ago he started having black tarry stool. Reports some lightheadedness today. Denies any chest pain or shortness of breath. He is on a baby aspirin daily. -Patient was able to provide a stool sample to the nursing staff on his immediate placement in an examination room. It is grossly melanotic. Hemoccult positive - Chronic conditions affecting care: IBS - Differential diagnoses include, but are not limited to: Bleeding peptic ulcer; ACS; diverticular bleed - Order placed for continuous cardiac monitoring. At this time, monitor showed rate of 104 bpm with normal sinus rhythm, per my interpretation. - External medical records reviewed. No previous colonoscopy or endoscopy notes in the chart. - EKG reviewed by myself showed normal sinus rhythm. Rate 97 bpm. QTc 419. No acute ischemic changes. - Laboratory workup interpreted by myself showed normal WBC; stable hemoglobin; stable electrolytes; elevated BUN (39); normal lipase; normal troponin - CXR negative for pneumonia or pneumoperitoneum, per my interpretation. - Patient given 1L NS and 40 mg IV protonix in ER. - Discussion was had with health care social worker about patient's case and need for admission - Hospitalist, Dr. Thomas, consulted for admission. - Patient admitted to [facility] Hospitalist service for further evaluation and management. ASSESSMENT AND PLAN: Diagnosis: Upper GI bleed; melena Plan: admit Past Med/Surg History Medical History (Updated 02/18/23 @ 21:27 by Adriane Santos MD) Abnormal EKG FOLLOWED BY DR. JOEL "DR. JOEL SAID THERE MUST BE SOMETHING WRONG WITH THE MACHINE". Anxiety GERD (gastroesophageal reflux disease) History of heart block IBS (irritable bowel syndrome) Osteoarthritis Surgical History History of cholecystectomy History of colonoscopy History of esophagogastroduodenoscopy (EGD) History of herniorrhaphy 3 HERNIA REPAIRS History of tooth extraction History of total knee replacement RT/LEFT Family History Other Family history unknown Social History Smoking Status: Unknown if ever smoked Second Hand Exposure: No; Do You Dip or Chew Tobacco: No; Hx Alcohol Use: Yes Alcohol type: beer Alcohol Intake Frequency Comment: 3 day Hx Substance Use: No Preferred Language: Algerian Communication Ability: Effective 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 Beliefs That Will Affect Care: None marital status: Current Living Situation: Spouse Feels Safe at Home: Yes Assistive Devices: Denture - Upper and Glasses Allergies Allergies Allergy/AdvReac Type Severity Reaction Status Date / Time No Known Allergies Allergy Verified 02/18/23 20:57 Home Meds Home Medications Medication Instructions Recorded Confirmed aspirin 81 mg tablet,delayed 81 mg PO QAM 07/29/19 02/18/23 release clonazepam 2 mg tablet (Klonopin) 2 mg PO HS 07/29/19 02/18/23 multivitamin 1 tab PO QAM 07/29/19 02/18/23 allopurinol 100 mg tablet 100 mg PO QAM 02/18/23 02/18/23 mupirocin 2 % topical ointment 1 applic topical HS 02/18/23 02/18/23 Results & Data (ED) Vital Signs Vital Signs - 24 hr 02/18/23 20:12 02/18/23 20:51 Temperature 36.9 C Temperature Source Oral Pulse Rate 98 H 102 H Respiratory Rate 14 Respiratory Effort / Characteristics Non-Labored Spontaneous Respiratory Depth Normal Respiratory Pattern Regular Blood Pressure 121/82 Blood Pressure Mean 95 Pulse Oximetry 99 Oxygen Delivery Method Room Air Sepsis Recent Fever Within 48 Hours No Sepsis New/Unexplained Change in Mental Status No Sepsis Action Taken by Nursing No Action Required Laboratory Data 02/18/23 20:02/18/23 20:23 Lab Results 02/18/23 02/18/23 Range/Units 20:23 20: WBC 7.91 (4.8-10.8) K/ul RBC 4.35 L (4.70-6.10) M/uL Hgb 14.1 (14.0-18.0) g/dl Hct 39.6 L (42.0-52.0) % MCV 91.0 (80.0-100.0) fL MCH 32.4 (25.0-34.0) pg MCHC 35.6 (32.0-36.0) g/dL RDW Std Deviation 41.5 (36.4-46.3) fL RDW Coeff of Eufemia 12.6 (11.5-14.5) % Plt Count 187 (130-400) K/uL MPV 11.0 (9.4-12.4) fL Immature Gran % (Auto) 0.5 % Neut % (Auto) 66.7 % Lymph % (Auto) 24.0 % Sabine % (Auto) 6.8 % Eos % (Auto) 1.0 % Baso % (Auto) 1.0 % Neut # (Auto) 5.27 (1.40-6.50) K/uL Lymph # (Auto) 1.90 (1.2-3.4) K/uL Sabine # (Auto) 0.54 (0.11-0.59) K/uL Eos # (Auto) 0.08 (0-0.50) K/uL Baso # (Auto) 0.08 (0-0.2) K/uL Immature Gran # (Auto) 0.04 (0.01-0.20) K/uL Sodium 137 (136-145) mmol/L Potassium 4.6 (3.5-5.1) mmol/L Chloride 107 (98-107) mmol/L Carbon Dioxide 21 (21-32) mmol/L Anion Gap 9 (3-11) BUN 39 H (6-23) mg/dl Creatinine 1.01 (0.6-1.4) mg/dl Est Cr Clr Drug Dosing 66.4 ml/min Est GFR ( Amer) 83.4 ml/min Est GFR (Non-Af Amer) 71.9 ml/min BUN/Creatinine Ratio 38.6 H (10-20) Glucose 132 H (70-99(Fasting)) mg/dl Calcium 8.6 (8.6-10.3) mg/dl Total Bilirubin 0.8 (0.2-1.0) mg/dl AST 20 (13-39) U/L ALT 19 (7-52) U/L Alkaline Phosphatase 55 (34-104) U/L Troponin I High Sens 7.9 (0-20) pg/ml Total Protein 6.6 (6.0-8.3) gm/dl Albumin 4.0 (3.4-5.0) gm/dl Globulin 2.6 (2.5-4.0) gm/dl Albumin/Globulin Ratio 1.5 (0.9-2) Lipase 15 (11-82) U/L Administered Medications Sodium Chloride (Nss 1000ml) 1,000 mls @ 999 mls/hr IV .Q1H1M ONE Stop: 02/18/23 22:00 Last Admin: 02/18/23 21:38 Dose: 999 mls/hr Documented By: KIMO Discontinued Medications Pantoprazole Sodium 40 mg/ (Syringe) 10 mls @ 5 mls/min IV NOW ONE Stop: 02/18/23 21:01 Last Admin: 02/18/23 21:38 Dose: 5 mls/min Documented By: KIMO Discharge Plan Visit Data Chief Complaint: GI Assessment Stated Complaint: GI ASSESSMENT ED Provider: Adriane Santos Discharge Problem: Acute upper gastrointestinal bleeding, Melena Forms Stand Alone Forms: My [facility] Prescriptions Prescriptions: No Action multivitamin Tablet 1 tab PO QAM aspirin 81 mg Tablet,Delayed Release (Dr/Ec) 81 mg PO QAM clonazepam [Klonopin] 2 mg Tablet 2 mg PO HS allopurinol 100 mg tablet 100 mg PO QAM mupirocin 2 % ointment 1 applic TOPICAL HS Rx Instructions: apply to inside of nostrils Referrals Referrals: Sandip Sanchez, [Primary Care Provider] -
[2023-02-19] MEDS ORDERED: ZOLPIDEM TARTRATE 5 MG TAB PO STA (01:40)
[2023-02-19] MEDS ORDERED: cefTRIAXone SODIUM 2,000 MG in DEXTROSE 5% AD-VAN 50 ML IV STA (02:10)
[2023-02-19] MEDS ORDERED: ONDANSETRON INJ 2 MG/ML 2 ML VIAL IV PRN ×2 (02:10→09:03)
[2023-02-19] MEDS ORDERED: PANTOPRAZOLE BOLUS/DRIP 1 EACH IV STA (02:10)
[2023-02-19] MEDS ORDERED: NITROGLYCERIN SL 0.4 MG/TAB TAB SL PRN (02:10)
[2023-02-19] MEDS ORDERED: PANTOprazole 80 MG in DEXTROSE 5% 100 ML IV ONE (02:10)
--- NOTE | 2023-02-19 02:28 | History and Physical Report ---
DATE OF ADMISSION: 02/19/2023 CHIEF COMPLAINT: GI bleed. HISTORY OF PRESENT ILLNESS: A 78-year-old male with past medical history significant for irritable bowel syndrome, GERD, aneurysm of descending thoracic aorta, generalized osteoarthritis, restless legs syndrome, degenerative lumbar disc disease, neuropathy, history of tobacco use, lives at home with his , presents with GI bleed. The patient says since last Saturday, he was having epigastric tenderness on and off and he had no bowel movement on Saturday and . On Saturday and Saturday, he had small hard stools, which were black in color and again had not move his bowel on and on Saturday he had a large amount of black stool and some bloody stool, which prompted him to come to the ER. He is hemodynamically stable. Currently abdominal pain is mild, comes and goes. Yesterday, he had a small amount of vomiting with had small specks of black stuff. Currently, denies any chest pain or shortness of breath. Was dizzy. No headache. No blurred vision. Somewhat hard of hearing. No runny nose, no sore throat. Can swallow okay. Normal bladder movements. ALLERGIES: No known drug allergies. PAST MEDICAL HISTORY: As mentioned above. PAST SURGICAL HISTORY: Bilateral knee arthroplasty, left heart catheterization, colonoscopy with biopsy, EGD, knee arthroscopy, cholecystectomy, inguinal hernia repair. MEDICATIONS: The patient is on allopurinol 100 mg p.o. a.m., aspirin 81 mg p.o. a.m., Klonopin 2 mg p.o. at bedtime, multivitamin 1 tablet p.o. a.m., mupirocin topical at bedtime. FAMILY HISTORY: Significant for the patient was adopted. SOCIAL HISTORY: . Quit smoking in 2006, smoked half pack a day for 12 years. alcohol 2 cans beer per day. No drug use. REVIEW OF SYSTEMS: As per HPI. Rest of review of systems is negative. PHYSICAL EXAMINATION: GENERAL: The patient is morbidly obese, not in acute distress. VITAL SIGNS: Temperature 36.9, pulse 82, respiratory rate 12, blood pressure 106/76, oxygen 98% on room air. HEENT: Pupils equal, round and reactive to light. Oral mucosa moist. NECK: No JVD or neck masses. CARDIOVASCULAR: S1 and S2 heard. Regular rate and rhythm. No murmur, no gallop. RESPIRATORY SYSTEM: Normal AP diameter. No accessory muscle use. No wheezing, no crackles. ABDOMEN: Soft, bowel sounds present. Mild epigastric tenderness present. No guarding, no rigidity, no distention. CENTRAL NERVOUS SYSTEM: Cranial nerves II through XII are grossly intact, nonfocal. EXTREMITIES: No edema, no erythema. LABORATORY DATA: WBC 7.9, hemoglobin 14.1, hematocrit 39.6, platelets 187. Sodium 137, potassium 4.6, chloride 107, bicarbonate 21, BUN 39, creatinine 1, serum glucose 132, calcium 8.6, total bilirubin 0.8, AST 20, ALT 19, alkaline phosphatase 55. Lipase 15. SARS-CoV-2 rapid test negative. IMAGING DATA: Chest x-ray, no acute findings. EKG: Normal sinus rhythm at a rate of 97, no acute findings. ASSESSMENT AND PLAN: This 78-year-old male presents with black stool. 1. Melena. The patient's aspirin will be held. Hemodynamically stable. Hemoglobin stable at 14.1. Mild tenderness in the epigastric region. Started on Protonix drip. Blood consent obtained. n.p.o., IV fluids, IV antibiotics. H and H q.6 hours. GI consult. Monitor in the tele floor. 2. History of descending thoracic aorta aneurysm. Needs to follow up. 3. Alcohol. drinks 2 cans beer daily. Says he wont gets withdrawal. Will monitor. 4. Deep venous thrombosis prophylaxis: Sequential compression devices. DISPOSITION: Closely monitor in tele floor. Level 1 full code. Expect to discharge home and follow with family doctor. Job ID: [id number] [facility]
[2023-02-19] MEDS ORDERED: cefTRIAXone SODIUM 2,000 MG in DEXTROSE 5% 50 ML IV STA (02:48)
[2023-02-19] MEDS ORDERED: PANTOprazole 40 MG in SYRINGE 0 ML IV ONE (02:50)
[2023-02-19] MEDS ORDERED: clonazePAM 1 MG TAB PO STA (02:53)
[2023-02-19] MEDS: SODIUM CHLORIDE 0.9% 1000ML 1,000 ML IV SCH ×4 (03:00→21:34)
[2023-02-19] MEDS ORDERED: cefTRIAXone SODIUM 2,000 MG in DEXTROSE 5% 50 ML IV SCH (03:00)
[2023-02-19] MEDS: PANTOprazole 40 MG in DEXTROSE 5% 100 ML IV SCH ×4 (03:05→19:46)
[2023-02-19 04:53] LABS: Basophils # (auto) 0.06 K/uL (0-0.2); Basophils % (auto) 0.9 %; Eosinophils # (auto) 0.14 K/uL (0-0.50); Eosinophils % (auto) 2.2 %; Hematocrit (blood only) 33.1 % (42.0-52.0); Hemoglobin 11.6 g/dl (14.0-18.0); Immature Granulocytes # (auto) 0.04 K/uL (0.01-0.20); Immature Granulocytes % (auto) 0.6 %; Lymphocytes % (auto) 26.3 %; Mean Corpuscular Hemoglobin 32.7 pg (25.0-34.0); Mean Corpuscular Volume 93.2 fL (80.0-100.0); Monocytes % (auto) 7.7 %; Neutrophils # (auto) 4.02 K/uL (1.40-6.50); Neutrophils % (auto) 62.3 %; Platelet Count 146 K/uL (130-400); RDW Coefficient of Variation 12.7 % (11.5-14.5); RDW Standard Deviation 43.7 fL (36.4-46.3); Red Blood Count 3.55 M/uL (4.70-6.10); White Blood Count 6.46 K/ul (4.8-10.8)
[2023-02-19 05:04] LABS: BUN Creatinine Ratio 36.1 (10-20); Calcium 8.1 mg/dl (8.6-10.3); Creatinine Clr Calc Pharmacy 69.1 ml/min; Est GFR (African American) 87.5 ml/min; Est GFR (Non-African American) 75.5 ml/min; Magnesium 1.8 mg/dl (1.7-2.4)
--- NOTE | 2023-02-19 06:38 | XRay Report ---
XR chest 1V portable CLINICAL HISTORY: Abdominal pain. COMPARISON STUDY: Chest radiograph and chest CT November 10, 2019. FINDINGS: Lung volumes are normal. Lungs are clear. There is no pneumothorax or pleural effusion. Car diac size is normal. Mediastinal contours are normal. There is no evidence for pulmonary edema. IMPRESSION: No acute cardiopulmonary findings. ACT 112: Negative or not required by law. Electronically signed by: Hank Lara M.D. 02/19/2023 6:36 AM
[2023-02-19] MEDS: allopurinoL 100 MG TAB PO SCH (08:12)
[2023-02-19] MEDS ORDERED: LIDOCAINE 2% 2 ML VIAL/AMP(20MG/ML) INFIL ONE (08:48)
[2023-02-19] MEDS ORDERED: PROPOFOL IV EMULSION 10 MG/ML 20 ML VIAL IV ONE ×3 (08:48→09:38)
--- NOTE | 2023-02-19 08:58 | Gastrointestinal Consultation ---
Date of Consultation February 19, 2023 Assessment & Plan (1) Acute upper gastrointestinal bleeding: Plan EGD today Supervising Physician Co-Signing Physician Notes I performed a history and physical examination of the patient today, including specifically on physical exam - soft abdomen. I have discussed the patient's management with the advanced practitioner. Please refer to the nurse practitioner's note for the documented findings and plan of care. Take Aleve for OA. EGD today History of Present Illness Reason for Consultation: Melena Requesting Physician: Martha Attending Physician: Julien Sevilla MD History of Present Illness Mr. Wolf Laguna is a 78 yr old male w a hx of IBS, GERD, aneurysm of descending thoracic aorta, generalized osteoarthritis, RLS, DDD, history of tobacco use, lives at home with his , presented to the ED yesterday for black BMs since Saturday, becoming large, loose yesterday. Hb 14 on arrival, 11.6 this morning. BUN elevated at 35. He is hemodynamically stable and he will undergo EGD this morning. Allergies Allergy/AdvReac Type Severity Reaction Status Date / Time No Known Allergies Allergy Verified 02/18/23 20:57 Home Medications Medication Instructions Recorded Confirmed Type aspirin 81 mg tablet,delayed 81 mg PO QAM 07/29/19 02/18/23 History release clonazepam 2 mg tablet (Klonopin) 2 mg PO HS 07/29/19 02/18/23 History multivitamin 1 tab PO QAM 07/29/19 02/18/23 History allopurinol 100 mg tablet 100 mg PO QAM 02/18/23 02/18/23 History mupirocin 2 % topical ointment 1 applic topical HS 02/18/23 02/18/23 History Patient History Medical History Abnormal EKG FOLLOWED BY DR. JOEL "DR. JOEL SAID THERE MUST BE SOMETHING WRONG WITH THE MACHINE". Anxiety GERD (gastroesophageal reflux disease) History of heart block IBS (irritable bowel syndrome) Osteoarthritis Surgical History History of cholecystectomy History of colonoscopy History of esophagogastroduodenoscopy (EGD) History of herniorrhaphy 3 HERNIA REPAIRS History of tooth extraction History of total knee replacement RT/LEFT Family History Other Family history unknown Social History Smoking Status: Unknown if ever smoked Second Hand Exposure: No; Do You Dip or Chew Tobacco: No; Hx Alcohol Use: Yes Alcohol type: beer Alcohol Intake Frequency Comment: 3 day Hx Substance Use: No Preferred Language: [place] Communication Ability: Effective Croze Cutter Required: No Beliefs That Will Affect Care: None marital status: Current Living Situation: Spouse Feels Safe at Home: Yes Assistive Devices: Denture - Upper and Glasses Review of Systems Review of Systems: ROS: Gen: Denies weakness, fevers, weight loss Eyes: No eye redness, or pain, no recent vision changes Resp: No SOB, no cough Cardio: No palpitations/irregular beats, no chest pain GI: No abdominal pain, no nausea/vomiting : Denies pain on urination Skin: No jaundice, itching or new rashes Physical Exam Constitutional: WD/WN, vitals as above Eyes: PERRL, conjunctivae normal, anicteric sclerae ENMT: external ear and nose normal, oropharynx normal Neck: trachea midline, no thyromegaly Respiratory: normal respiratory effort, lungs clear to auscultation Gastrointestinal (Abdomen): mild epigastric tenderness, soft, non distended Skin: no rashes, warm and dry Neurologic: PERRL, EOMI, accommodation nl, no face palsy, no dysarthria Psychiatric: A+Ox3, euthymic affect Lymphatic: no cervical or axillary lymphadenopathy Results & Data Vital Signs (Past 12 Hours) Vital Signs Temp Pulse Pulse Resp BP BP Pulse Ox 02/19/23 08:50 36.0 C L 82 16 132/71 98 02/19/23 07:10 82 16 120/66 98 02/19/23 07:10 02/19/23 07:01 73 02/19/23 02:00 76 12 97 02/19/23 02:00 121/75 02/19/23 01:30 77 14 95 02/19/23 01:00 78 13 96 02/19/23 01:00 116/72 02/19/23 00:30 87 22 100 02/19/23 01:24 78 02/19/23 00:00 82 12 106/76 98 02/18/23 23:30 80 14 145/64 H 99 02/18/23 23:00 82 14 122/78 97 02/18/23 22:30 87 20 100 02/18/23 22:00 82 14 100 02/18/23 22:00 133/75 02/18/23 21:30 103 H 17 99 02/18/23 21:00 102 H 16 97 02/18/23 21:00 126/85 Pulse Ox O2 Del Method O2 Del Method 02/19/23 08:50 Room Air 02/19/23 07:10 Room Air 02/19/23 07:10 98 Room Air 02/19/23 07:01 02/19/23 02:00 02/19/23 02:00 02/19/23 01:30 02/19/23 01:00 02/19/23 01:00 02/19/23 00:30 02/19/23 01:24 02/19/23 00:00 02/18/23 23:30 02/18/23 23:00 02/18/23 22:30 02/18/23 22:00 02/18/23 22:00 02/18/23 21:30 02/18/23 21:00 02/18/23 21:00 Laboratory Results Reviewed. Hb 11, BUN 35. Others w/o sign abnormalities Diagnostic Findings CXR: no acute findings.
--- NOTE | 2023-02-19 09:00 | History & Physical Bridge Note ---
Date of Service February 19, 2023 History & Physical Bridge Note I have examined the patient, reviewed the History & Physical and in the interval since the performance of the History & Physical I have noted the following changes of clinical significance: no changes noted EGD Patient was explained in detail regarding risks, benefits, limitations and alternatives of the above endoscopic procedure. Risks of intravenous sedation used for procedure were also explained. Risks include, but not limited to perforation, bleeding, infection, respiratory distress, cardiac arrest and . Patient is also aware about the possibility of missed lesion. Patient's questions were answered. The patient verbalized understanding the information and agreed to undergo the procedure.
[2023-02-19] MEDS ORDERED: ATROPINE SULFATE 0.1 MG/ML 10ML SYR IV PRN (09:03)
[2023-02-19] MEDS ORDERED: ePHEDrine sulfate 50 MG/ML AMP IV PRN (09:03)
--- NOTE | 2023-02-19 09:03 | Anesthesiology Consultation ---
Date of Service February 19, 2023 Assessment & Plan Chart Review Chart Review: Acceptable Risk for Surgery ASA ASA3 Proposed Anesthesia Anesthesia Type: MAC Risk / Benefits Reviewed With: PT / POA / Parent / Guardian, Accepts Plan and Informed Consent Obtained History Surgery Operation Date: 02/19/23 17:00 Proposed Procedures p Esophagogastroduodenoscopy Dr Walker - Kai Walker MD Height/Weight Height: 5 ft 6 in Weight: 86 kg Allergies Allergy/AdvReac Type Severity Reaction Status Date / Time No Known Allergies Allergy Verified 02/18/23 20:57 Medications Home Medications Medication Instructions Recorded Confirmed Last Taken aspirin 81 mg tablet,delayed 81 mg PO QAM 07/29/19 02/18/23 11/10/19 release clonazepam 2 mg tablet (Klonopin) 2 mg PO HS 07/29/19 02/18/23 11/09/19 multivitamin 1 tab PO QAM 07/29/19 02/18/23 11/10/19 allopurinol 100 mg tablet 100 mg PO QAM 02/18/23 02/18/23 Unknown mupirocin 2 % topical ointment 1 applic topical HS 02/18/23 02/18/23 Unknown Active Medications Generic Name Dose Route Start Last Admin Trade Name Freq PRN Reason Stop Dose Admin Allopurinol 100 mg 02/19/23 09:00 02/19/23 08:12 Allopurinol 100 Mg Tab PO 03/21/23 08:59 100 mg QAM MARCIA Administration Sodium Chloride 1,000 mls @ 125 mls/hr 02/19/23 02:10 02/19/23 08:46 Nss 1000ml IV 03/21/23 02:09 0 mls/hr .Q8H MARCIA Infusion Pantoprazole Sodium 40 mg/ 100 mls @ 20 mls/hr 02/19/23 03:00 02/19/23 08:46 Dextrose IV 03/21/23 02:59 0 mg/hr Q5H MARCIA 0 mls/hr Infusion 8 MG/HR NPO Date Last Intake of Fluids: 02/19/23 Time Last Intake of Fluids: 07:30 Date Last Intake of Solids: 02/17/23 Time Last Intake of Solids: 17:30 Past Medical History Medical History Abnormal EKG FOLLOWED BY DR. JOEL "DR. JOEL SAID THERE MUST BE SOMETHING WRONG WITH THE MACHINE". Anxiety GERD (gastroesophageal reflux disease) History of heart block IBS (irritable bowel syndrome) Osteoarthritis Exercise / Class Metabolic Activity II 4-5 Yardwork/Stairs/Walk up hill Past Family History Family History Other Family history unknown Past Surgical History Surgical History History of cholecystectomy History of colonoscopy History of esophagogastroduodenoscopy (EGD) History of herniorrhaphy 3 HERNIA REPAIRS History of tooth extraction History of total knee replacement RT/LEFT Past Anesthesia History No Hx of Anesthesia Complications History of PONV No Hx of PONV Social History Smoking Status: Unknown if ever smoked tobacco type: cigarettes Do You Dip or Chew Tobacco: No Hx Alcohol Use: Yes Alcohol type: beer alcohol intake frequency: 3 or more drinks per day Hx Substance Use: No substance use type: does not use Review of Systems ROS Unobtainable: All systems reviewed & are unremarkable except as noted in HPI & below Physical Exam Vital Signs Last Vital Signs Temp 36.0 C L 02/19/23 08:50 Pulse 82 02/19/23 08:50 Resp 16 02/19/23 08:50 BP 132/71 02/19/23 08:50 Pulse Ox 98 02/19/23 08:50 O2 Del Method Room Air 02/19/23 08:50 ENMT Thyromental Distance: > or= 3.5 Finger Breadths Mallampati Class: II Respiratory normal respiratory effort Auscultation: lungs clear to auscultation bilaterally Cardiovascular Rate/Rhythm: regular rate and regular rhythm Psychiatric Orientation: alert and oriented x 3 Testing Laboratory Results 02/19/23 04:28 02/19/23 04:28 Blood Type A Positive 02/18/23 21:31 Antibody Screen NEGATIVE 02/18/23 21:31
--- NOTE | 2023-02-19 09:16 | Electrocardiogram Report ---
Test Reason : Blood Pressure : / mmHG Vent. Rate : 097 BPM Atrial Rate : 097 BPM P-R Int : 192 ms QRS Dur : 078 ms QT Int : 330 ms P-R-T Axes : 068 068 055 degrees QTc Int : 419 ms Normal sinus rhythm Normal ECG When compared with ECG of 11-NOV-2019 06:32, [place] interval has decreased Vent. rate has increased BY 33 BPM Confirmed by Jeromy Cannon ([id number]) on 02/19/2023 9:16:07 AM Referred By: REFERRED SELF Confirmed By:Jeromy Cannon
--- NOTE | 2023-02-19 09:47 | GI REPORT ---
Patient Name: Wolf Laguna Procedure Date: 02/19/2023 9:03 AM Date of : 1945 Admit Type: Inpatient Age: 78 Gender: Male Attending MD: Kai Walker MD, Procedure: Upper GI endoscopy Providers: Kai Walker MD Referring MD: Julien Sevilla Md Indications: Suspected upper gastrointestinal bleeding Medicines: Propofol per Anesthesia Complications: No immediate complications. Estimated Blood Loss: Estimated blood loss: none. Procedure: Pre-Anesthesia Assessment: - Prior to the procedure, a History and Physical was performed, and patient medications, allergies and sensitivities were reviewed. The patient's tolerance of previous anesthesia was reviewed. - The risks and benefits of the procedure and the sedation options and risks were discussed with the patient. All questions were answered and informed consent was obtained. - Patient identification and proposed procedure were verified prior to the procedure by the physician and the nurse. The procedure was verified in the procedure room. - Pre-procedure physical examination revealed no contraindications to sedation. After obtaining informed consent, the endoscope was passed under direct vision. Throughout the procedure, the patient's blood pressure, pulse, and oxygen saturations were monitored continuously. The Endoscope was introduced through the mouth, and advanced to the second part of duodenum. The upper GI endoscopy was accomplished without difficulty. The patient tolerated the procedure well. Findings: The examined esophagus was normal. The entire examined stomach was normal. One non-bleeding cratered duodenal ulcer with a visible vessel was found in the duodenal bulb. The lesion was 15 mm in largest dimension. Coagulation for hemostasis using bipolar probe was successful. For hemostasis, six hemostatic clips were successfully placed (MR conditional). 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 There was no bleeding at the end of the procedure. The second portion of the duodenum was normal. Impression: - Normal esophagus. - Normal stomach. - Deeply cratered duodenal ulcer with a visible vessel. Treated with bipolar cautery. Ulcer closed with purse string, clip and loop technique. - Normal second portion of the duodenum. - No specimens collected. Recommendation: - [facility]. - Clear liquid diet for 2 days, then advance as tolerated to full liquid diet for 2 days. - No aspirin, ibuprofen, naproxen, or other non-steroidal anti-inflammatory drugs for 5 days. - Use a proton pump inhibitor IV drip for 2 days then PO BID for 3 months. Kai Walker MD 02/19/2023 9:47:27 AM This report has been signed electronically. Note Initiated On: 02/19/2023 9:03 AM Number of Addenda: 0 I attest to the content of the Intraoperative Record and orders documented therein, exceptions below {[id number]}
[2023-02-19 11:36] LABS: Hematocrit (blood only) 33.6 % (42.0-52.0); Hemoglobin 11.3 g/dl (14.0-18.0)
--- NOTE | 2023-02-19 12:50 | Communication Note ---
Date of Service: February 19, 2023 Patient seen and examined at bedside as a follow-up of likely upper GI bleed. Patient underwent EGD scope and duodenal ulcer was noted which was cauterized. GI on board. Patient on clear liquid diet, continue with IV PPI. Appreciate GI recommendation. On exam: GENERAL: Alert and oriented x3. NAD, on RA. HEENT: No pallor, no icterus. Pupils equal, round and reactive to light. Oral mucosa moist. NECK: No JVD, no neck masses. HEART: S1 and S2 heard. Regular rate and rhythm. No murmur, no gallop. RESPIRATORY SYSTEM: Normal AP diameter. No accessory muscle use. No wheezing, no crackles. ABDOMEN: Soft, bowel sounds present, nontender, no distention. CENTRAL NERVOUS SYSTEM: No facial droop. Speech is clear. Obeys simple commands. Moves extremities. EXTREMITIES: No edema, no erythema seen. For further information on the patient in detail, refer to today's H&P note.
[2023-02-19 14:23] LABS: Hematocrit (blood only) 29.7 % (42.0-52.0); Hemoglobin 9.9 g/dl (14.0-18.0)
--- NOTE | 2023-02-19 15:35 | Anesthesiology Progress Note ---
Date of Service February 19, 2023 Anesthesia Post Procedure Vital Signs Vital Signs: Temp Pulse Pulse Resp BP BP Pulse Ox 02/19/23 10:37 68 16 115/61 99 02/19/23 10:12 67 14 133/86 97 02/19/23 09:58 61 14 130/76 100 02/19/23 09:43 36.0 C L 63 14 84/57 L 98 02/19/23 08:50 36.0 C L 82 16 132/71 98 02/19/23 07:10 82 16 120/66 98 02/19/23 07:10 02/19/23 07:01 73 02/19/23 02:00 76 12 97 02/19/23 02:00 121/75 02/19/23 01:30 77 14 95 02/19/23 01:00 78 13 96 02/19/23 01:00 116/72 02/19/23 00:30 87 22 100 02/19/23 01:24 78 02/19/23 00:00 82 12 106/76 98 02/18/23 23:30 80 14 145/64 H 99 02/18/23 23:00 82 14 122/78 97 02/18/23 22:30 87 20 100 02/18/23 22:00 82 14 100 02/18/23 22:00 133/75 02/18/23 21:30 103 H 17 99 02/18/23 21:00 102 H 16 97 02/18/23 21:00 126/85 02/18/23 20:51 96 H 15 98 02/18/23 20:51 102 H 02/18/23 20:12 36.9 C 98 H 14 121/82 99 Pulse Ox O2 Del Method O2 Del Method 02/19/23 10:37 Room Air 02/19/23 10:12 Room Air 02/19/23 09:58 Room Air 02/19/23 09:43 Room Air 02/19/23 08:50 Room Air 02/19/23 07:10 Room Air 02/19/23 07:10 98 Room Air 02/19/23 07:01 02/19/23 02:00 02/19/23 02:00 02/19/23 01:30 02/19/23 01:00 02/19/23 01:00 02/19/23 00:30 02/19/23 01:24 02/19/23 00:00 02/18/23 23:30 02/18/23 23:00 02/18/23 22:30 02/18/23 22:00 02/18/23 22:00 02/18/23 21:30 02/18/23 21:00 02/18/23 21:00 02/18/23 20:51 02/18/23 20:51 02/18/23 20:12 Room Air Pain Intensity Bilateral Medial Abdomen: Pain Intensity: 2 Transfer of Care Handoff Completed per policy Notes Mental Status: alert / awake / arousable and participated in evaluation Nausea / Vomiting: adequately controlled Pain: adequately controlled Airway Patency, RR, SpO2: stable & adequate BP & HR: stable & adequate Hydration State: stable & adequate Anesthetic Complications: no major complications apparent and Pt Satisfied with anesthetic care
[2023-02-19 17:13] LABS: Hematocrit (blood only) 31.2 % (42.0-52.0); Hemoglobin 10.6 g/dl (14.0-18.0)
[2023-02-19 17:35] LABS: Appearance Urine Clear (Clear); Bilirubin Urine Negative (Negative); Blood Urine Negative (Negative); Color Urine Yellow; Glucose Urine UA Negative (Negative); Ketones Urine Negative (Negative); Leukocyte Esterase Urine Negative (Negative); Nitrite Urine Negative (Negative); Protein Urine Negative (Negative); Specific Gravity Urine 1.009 (1.000-1.030); Urobilinogen Urine Negative (Negative); pH Urine 6.5 (4.5-7.5)
[2023-02-19] MEDS: clonazePAM 1 MG TAB PO SCH (20:29)
[2023-02-19] MEDS: MUPIROCIN 2% OINT 22 GM TUBE INTNAS SCH (20:30)
[2023-02-20] MEDS: PANTOprazole 40 MG in DEXTROSE 5% 100 ML IV SCH ×5 (00:52→19:56)
[2023-02-20] MEDS: SODIUM CHLORIDE 0.9% 1000ML 1,000 ML IV SCH ×2 (05:35→08:42)
[2023-02-20 06:17] LABS: Hematocrit (blood only) 26.5 % (42.0-52.0); Hemoglobin 9.1 g/dl (14.0-18.0); Mean Corpuscular Hemoglobin 32.9 pg (25.0-34.0); Mean Corpuscular Hgb Conc 34.3 g/dL (32.0-36.0); Mean Corpuscular Volume 95.7 fL (80.0-100.0); Mean Platelet Volume 10.7 fL (9.4-12.4); Platelet Count 114 K/uL (130-400); RDW Coefficient of Variation 12.8 % (11.5-14.5); RDW Standard Deviation 44.7 fL (36.4-46.3); Red Blood Count 2.77 M/uL (4.70-6.10); White Blood Count 4.15 K/ul (4.8-10.8)
[2023-02-20 06:29] LABS: BUN Creatinine Ratio 14.9 (10-20); Calcium 7.4 mg/dl (8.6-10.3); Est GFR (African American) 90.9 ml/min; Est GFR (Non-African American) 78.4 ml/min; Magnesium 1.8 mg/dl (1.7-2.4); Phosphorus 2.2 mg/dl (2.5-4.9); Potassium 3.6 mmol/L (3.5-5.1)
[2023-02-20] MEDS ORDERED: POTASSIUM PHOS 3 MMOL/1 ML INFUSION IV STA (08:05)
--- NOTE | 2023-02-20 08:08 | Hospitalist Progress Note ---
Date of Service February 20, 2023 Assessment & Plan (1) Acute upper gastrointestinal bleeding: Plan: -trend H/H, transfuse if Hb less than 7 or symptoms (2) Duodenal ulcer: Plan: -EGD 02/19 shows duodenal ulcer with exposed vessel. Plan to remain on protonix IV for 48 hours (until 02/21) then oral BID for 3 months. -home aspirin on hold. Patient was previously taking aleve and was instructed to abstain from NSAIDs -Appreciate GI input Plan DVT -SCDs Anxiety -continue home klonopin 2mg QHS Disposition -likely discharge tomorrow if H/H remains stable Admission and Anticipated Discharge Date Admission Date: February 19, 2023 Subjective EGD yesterday Remains on protonix drip since admission (1 day) Feels well. Tolerating clears. Denies further melena (stools are dark but not black) Review of Systems Review of Systems: As above Physical Exam Physical Exam: Appears well. No acute distress, non toxic Respiratory: Breathing comfortably on room air. No wheezing/rhonchi/rales Cardiovascular: Regular rate and rhythm. No murmurs/rubs/gallops Gastrointestinal (Abdomen): Soft, non tender, non distended Musculoskeletal: No edema, no cyanosis or clubbing Neurologic: awake, alert, spontaneously moving extremities Results & Data Results & Data Vital Signs (Past 12 Hours) Vital Signs Temp Pulse Pulse Resp BP Pulse Ox O2 Del Method 02/20/23 04:00 36.5 C 74 18 107/57 L 97 Room Air 02/20/23 03:00 68 02/20/23 00:00 36.6 C 74 18 101/57 L 98 Room Air
[2023-02-20] MEDS ORDERED: POTASSIUM PHOSPHATE 15 MMOL in SODIUM CHLORIDE 0.9% 250 ML IV ONE (08:30)
[2023-02-20] MEDS: allopurinoL 100 MG TAB PO SCH (08:41)
[2023-02-20] MEDS ORDERED: CALCIUM GLUCONATE 10% 2,000 MG in DEXTROSE 5% 50 ML IV ONE (15:15)
--- NOTE | 2023-02-20 15:55 | Gastroenterology Progress Note ---
Date of Service February 20, 2023 Assessment & Plan (1) Duodenal ulcer: Plan: Clear liquids today. Cont PPI drip today. If no events overnight - Tomorrow full liquids and change to po BID PPI x 2 months then daily. No f/u EGD or GI f/u required (unless new symptoms). GI will sign off. Recall if needed. Admission and Anticipated Discharge Date Admission Date: February 19, 2023 Supervising Physician Co-Signing Physician Notes I performed a history and physical examination of the patient today, including specifically on physical exam - soft abdomen. I have discussed the patient's management with the advanced practitioner. Please refer to the nurse practitioner's note for the documented findings and plan of care. Subjective Admitted for melena. EGD yesterday w a duodenal ulcer, tx w bipolar cauter, closed w purse string/clip. Doing well. Up walking in room. No pain, taking clear liquid diet well. Passed one tarry BM last evening. No evidence of current UGI bleeding. Hb is 9.1, BUN 14. Review of Systems Review of Systems: ROS: Gen: Denies weakness, fevers, weight loss Eyes: No eye redness, or pain, no recent vision changes Resp: No SOB, no cough Cardio: No palpitations/irregular beats, no chest pain GI: No abdominal pain, no nausea/vomiting : Denies pain on urination Skin: No jaundice, itching or new rashes Physical Exam Constitutional: WD/WN, vitals as above Eyes: PERRL, conjunctivae normal, anicteric sclerae ENMT: external ear and nose normal, oropharynx normal Neck: trachea midline, no thyromegaly Respiratory: normal respiratory effort, lungs clear to auscultation Cardiovascular: RRR, no murmur, no edema Gastrointestinal (Abdomen): normal bowel sounds, soft, nontender, no hep atosplenomegaly Skin: no rashes, warm and dry Neurologic: PERRL, EOMI, accommodation nl, no face palsy, no dysarthria Psychiatric: A+Ox3, euthymic affect Lymphatic: no cervical or axillary lymphadenopathy Results & Data Vital Signs (Past 12 Hours) Vital Signs Temp Pulse Resp BP Pulse Ox O2 Del Method 02/20/23 12:00 36.8 C 70 16 116/62 99 Room Air 02/20/23 08:43 36.9 C 79 15 103/56 L 98 Room Air 02/20/23 04:00 36.5 C 74 18 107/57 L 97 Room Air Laboratory Results WBC 4.1, Hb 9.1, Hcy 26, PLts 114, Na 142, K 3.6, Cl 114, Co2 24, BUN 14, C4 0.94, glucose 99
[2023-02-20] MEDS: MUPIROCIN 2% OINT 22 GM TUBE INTNAS SCH (20:01)
[2023-02-20] MEDS: clonazePAM 1 MG TAB PO SCH (20:40)
[2023-02-21] MEDS: PANTOprazole 40 MG in DEXTROSE 5% 100 ML IV SCH (01:12)
[2023-02-21 05:57] LABS: Hematocrit (blood only) 26.3 % (42.0-52.0); Hemoglobin 9.1 g/dl (14.0-18.0); Mean Corpuscular Hemoglobin 32.5 pg (25.0-34.0); Mean Corpuscular Hgb Conc 34.6 g/dL (32.0-36.0); Mean Corpuscular Volume 93.9 fL (80.0-100.0); Mean Platelet Volume 11.3 fL (9.4-12.4); Platelet Count 119 K/uL (130-400); RDW Coefficient of Variation 12.8 % (11.5-14.5)
[2023-02-21 06:06] LABS: BUN Creatinine Ratio 7.5 (10-20); Calcium 7.5 mg/dl (8.6-10.3); Est GFR (African American) 78.6 ml/min; Est GFR (Non-African American) 67.8 ml/min; Potassium 3.7 mmol/L (3.5-5.1)
[2023-02-21] MEDS: allopurinoL 100 MG TAB PO SCH (08:38)
[2023-02-21] MEDS ORDERED: PANTOprazole 40 MG TAB PO SCH (09:00)
--- NOTE | 2023-02-21 09:33 | Discharge Summary ---
Date of Service February 21, 2023 Admission HPI Per Admitting Provider A 78-year-old male with past medical history significant for irritable bowel syndrome, GERD, aneurysm of descending thoracic aorta, generalized osteoarthritis, restless legs syndrome, degenerative lumbar disc disease, neur opathy, history of tobacco use, lives at home with his , presents with GI bleed. The patient says since last Saturday, he was having epigastric tenderness on and off and he had no bowel movement on Saturday and . On Saturday and Saturday, he had small hard stools, which were black in color and again had not move his bowel on and on Saturday he had a large amount of black stool and some bloody stool, which prompted him to come to the ER. He is hemodynamically stable. Currently abdominal pain is mild, comes and goes. Yesterday, he had a small amount of vomiting with had small specks of black stuff. Currently, denies any chest pain or shortness of breath. Was dizzy. No headache. No blurred vision. Somewhat hard of hearing. No runny nose, no sore throat. Can swallow okay. Normal bladder movements. Principal Diagnosis Duodenal Ulcer Discharge Exam Patient appeared well. He was sitting on the edge of his bed and reading the newspaper. Tolerated breakfast. Has been up and moving in his room independently Heart is regular rate and rhythm Breathing comfortably on room air No lower extremity swelling Discharge Data Allergies Allergy/AdvReac Type Severity Reaction Status Date / Time No Known Allergies Allergy Verified 02/18/23 20:57 Consultations 02/18/23 21:44 ED Decision to Admit Stat 02/19/23 08:00 Consult Gastroenterology Routine Procedures Performed Operation Date: 02/19/23 17:00 Actual Procedures p EGD Hemostasis - Kai Walker MD Hospital Course (1) Duodenal ulcer: (2) Acute upper gastrointestinal bleeding: Plan Mr Wolf Laguna is a 78 year old man with history of IBS, Anxiety, Depression, DJD presents to ER 02/19 with epigastric tenderness and black stools for about 1 week. He was placed on a protonix drip and had an EGD 02/19 which revealed a large, cratered duodenal ulcer with an exposed blood vessel. Clips were placed on exposed vessel. He remained on a protonix drip for 48 hours and maintained on clears. After the initial 48 hours, he was switched to protonix 40mg oral BID which he will need to continue for 2 months then can step down to 40mg daily. Upon further history, patient reports using Aleve for his arthritis "more than I should" and was instructed to avoid NSAIDs in the future. For his arthritis, he may use acetaminophen as needed. He also takes a baby aspirin which he can resume 02/23. He was encouraged to follow up with his outpatient [employer] to decide whether he needs to remain on aspirin indefinitely. At time of discharge he was feeling well. H/h was stable and he was tolerating a full liquid diet. He was instructed to slowly advance his diet at home as tolerated. Total Time Total Time Spent Total Time Spent (In Minutes): 40 Discharge Plan Discharge Items Patient Disposition: Home - Self-Care Reason For Visit: GI BLEED Discharge Diagnosis: Duodenal Ulcer Condition on Discharge: Good Activity: Resume your previous activity Non-emergency contact: Primary Care Provider Call non-emergency contact if: you have any medication questions and your symptoms worsen Follow-up/Referrals: Sandip Sanchez DO [Primary Care Provider] - 02/26/23 11:20 am (Date & Time 02/26/2023 11:20 AM Provider Sandip Sanchez DO Department [facility] [address], [place] ) Diet: Full liquid Diet Comment: Full liquid diet for rest of today. Then starting 02/22 slowly advance Addtl Attending Provider Instructions: You were admitted for bleeding and was found to have a duodenal ulcer. The ulcer is from your use of Aleve. Please avoid Aleve or similar medications (ibuprofen, naproxen, advil) You will need to be on protonix twice a day for 2 months then daily thereafter You can resume your baby aspirin 02/23. If you have new symptoms or return of your old symptoms, please let your doctor know Please follow up with your primary care doctor in 2 weeks after discharge Pending Studies at Discharge: No Stand-Alone Forms: [employer] [facility], Smoking Cessation Medications and DC Order Prescriptions: New pantoprazole 40 mg Tablet,Delayed Release (Dr/Ec) 40 mg PO BID 60 Days Qty: 120 0RF Continued multivitamin Tablet 1 tab PO QAM aspirin 81 mg Tablet,Delayed Release (Dr/Ec) 81 mg PO QAM clonazepam [Klonopin] 2 mg Tablet 2 mg PO HS allopurinol 100 mg tablet 100 mg PO QAM mupirocin 2 % ointment 1 applic TOPICAL HS Rx Instructions: apply to inside of nostrils Discharge Orders: Discharge Order (Routine); Ordered 02/21/23 Ordered By: Angelica Sharp Admission Data Admit Date/Time: 02/19/23 01:08 Attending Provider: Angelica Sharp Admit Provider: Conor Thomas Primary Care Provider: Sandip Sanchez Other Providers: Conor Thomas ; Joyce Zazueta ; Fermin Hoffman ; Krista Savage ; Trixie Bernstein ; Breanna Marques ; Kathy Mitchell ; Ambrose Argueta ; Dami Enriquez ; Luis Coreas ; Bijan Watson ; Rex Drake ; Shayla Avila ; Batool Marcial ; Anitha Gonzalez ; Kallie Chacon ; Kai Walker ; Herrera Guzmán ; Dread Carpenter ; Neelam Johnson ; Des Aguilera Jr ; Julien Sevilla
== END 2023-02-21 10:28 | disposition home or self-care (01) | DRG 379 ==
LOC: ED 19:56 → EDINP 02-19 01:08 → SUATTDRO 02-19 01:08 → 1E 02-19 02:09